=== PATIENT | female | born 1955 | race Caucasian/White ===

== ENCOUNTER 2017-08-10 14:46 | Inpatient (IN) | payer OTHER ==
--- NOTE | 2017-08-10 16:12 | RAD ---
Indication: RIGHT shoulder fracture or dislocation. Comparison: No relevant prior exams available on the [facility] PACS for comparison. Technique: CT RIGHT shoulder without contrast. Multiplanar reformation. Report: Normal acromioclavicular and glenohumeral joint alignment. Comminuted segmental impacted fracture extending from the surgical to the anatomic neck of the humerus with involvement of both the lesser and greater tuberosities. Up to 60 degrees apex anterior angulation. Associated moderate glenohumeral joint lipohemarthrosis. Negative for fracture of the scapula or distal clavicle. Mild osteophytosis, capsular hypertrophy, subchondral sclerosis, and subchondral cystic change at the acromioclavicular joint. Soft tissue edema greatest over the anterolateral aspect superficial to the deltoid muscle. No loculated soft tissue plane hematoma evident. IMPRESSION: Comminuted segmental impacted fracture extending from the surgical to the anatomic neck of the humerus with involvement of both the lesser and greater tuberosities. Up to 60 degrees apex anterior angulation. Associated moderate glenohumeral joint lipohemarthrosis.
[2017-08-10 16:25] LABS: Hematocrit 34 % (35-47); Hemoglobin 11.3 g/dl (12.0-16.0); Mean Corpuscular HGB Conc 33 g/dl (31-36); Mean Corpuscular Hemoglobin 29 pg (27-31); Mean Corpuscular Volume 87 fL (80-97); Mean Platelet Volume 7 um3 (7.4-10.4); Platelet Count 350 10^3/ul (150-450); Red Blood Count 3.91 10^6/ul (4.0-5.4); Red Cell Distribution Width 14 % (10.5-15); White Blood Count 13.8 10^3/ul (3.5-10.8)
--- NOTE | 2017-08-10 16:29 | RAD ---
Indication: Preoperative assessment. RIGHT humeral fracture. Comparison: RIGHT shoulder CT of the same date. Technique: Upright AP 1604 hours Report: Elevated lung volumes with mild prominence of interstitial markings. No alveolar consolidation, suspicious focal pulmonary lesion, pleural effusion, pneumothorax. The heart, pulmonary vasculature, and mediastinal contours are unremarkable. Bilateral healed rib fractures noted. No acute rib fracture evident. RIGHT humeral neck fracture noted corresponding with findings on dedicated CT of the RIGHT shoulder of the same date. IMPRESSION: Stigmata of obstructive lung disease. No acute pulmonary or cardiac process evident.
[2017-08-10 16:35] LABS: INR 0.95 (0.77-1.02)
[2017-08-10 16:39] LABS: EGFR Non-African American 113.1 (>60)
--- NOTE | 2017-08-10 18:08 | PN ---
Progress Note - Progress Note Date of Service: 08/10/17 SOAP: Full note dictated. Right four part displaced proximal humerus fracture. Plan for surgical intervention tomorrow in the form of an ORIF. She will be admitted and a hospitalist consult has been called. She will be npo at midnight and the hospitalist tells me an echo will be done in the morning.
[2017-08-10] MEDS ORDERED: Ondansetron INJ* 2 MG/ML VIAL IV PRN (18:15)
[2017-08-10] MEDS ORDERED: Acetaminophen TAB* 325 MG PO PRN (18:15)
[2017-08-10] MEDS: Morphine INJ* 2 MG/ML 1 ML CARPUJECT IV PRN (19:44)
[2017-08-10] MEDS ORDERED: Dextrose 50% Syringe 50 ML* 25 GM/50 ML SYRINGE IV PUSH PRN (20:33)
[2017-08-10] MEDS ORDERED: Albuterol 2.5 MG/3 ML NEB.SOL* (0.083%) INH PRN (20:36)
[2017-08-10] MEDS ORDERED: Magnesium Sulf 4 GM/100 ML IV* 4,000 MG/100 ML BAG IVPB ONE (20:38)
[2017-08-10] MEDS ORDERED: Lisinopril TAB* 10 MG PO SCH (21:00)
[2017-08-10] MEDS: DULoxetine DR CAP* 60 MG CAP.DR PO SCH (21:40)
[2017-08-10] MEDS: oxyCODONE/Acetamin 5/325 MG* TAB PO PRN (21:40)
[2017-08-10] MEDS: Gabapentin CAP(*) 300 MG PO SCH (21:40)
[2017-08-10] MEDS: Atorvastatin* 20 MG TAB PO SCH (21:40)
[2017-08-10] MEDS: Prazosin CAP* 1 MG PO SCH (21:41)
[2017-08-10] MEDS: Lisinopril TAB* 10 MG PO SCH (22:43)
--- NOTE | 2017-08-11 00:53 | CONS ---
CC: Rosalee Zaidi NP; Silas Monteor MD; Susana Cameron MD * CONSULTATION REPORT: DATE OF CONSULT: 08/10/17 PRIMARY CARE PROVIDER: Rosalee Zaidi NP REQUESTING PROVIDER: Silas Montero MD MY ATTENDING WHILE IN THE HOSPITAL: Susana Cameron MD REASON FOR CONSULTATION: Comanagement of comorbid medical conditions. HISTORY OF PRESENT ILLNESS: Ms. King is a 61-year-old female with past medical history significant for throat cancer in remission for 3 years, COPD, diabetes mellitus type 2, anxiety, and osteoporosis, who was out walking her dog today and stepped off a curb, fell on the ice, falling directly on her right shoulder. The patient states that her head hit the snow and she did not lose consciousness, have any prodromal symptoms or pain before the fall. The patient had immediate worst pain of her life after the fall. The patient was able to roll over and slowly make her way back to her house, which took about 5 minutes. The patient has no other sick contacts, recent illnesses, or other abnormalities. The patient denies chest pain before or after the incident. The patient denies any increased shortness of breath, nausea, vomiting, diarrhea. The patient was taken to [facility], where x-rays were taken and then she was transferred to our emergency room as she had a humeral fracture. The patient was accepted by Dr. Montero and he was unable to take her to the operating room today, so plan is for the patient to be taken to the operating room tomorrow. The patient had an EKG, which showed inverted T waves across the precordium, no other ST changes, and a QTc of 519. The patient had a troponin that should be added on to her lab work, which was 0.00. Another troponin is pending. The patient recently had a PET scan ordered by her oncologist due to concern for metastatic throat cancer, which had lesions in her lungs concerning for metastasis, the patient has not yet followed up on this. The patient also had a colonoscopy, which was unremarkable. The patient wears oxygen intermittently at home and wears a CPAP at night for obstructive sleep apnea. PAST MEDICAL HISTORY: Throat cancer, treated with radiation in 2013, currently in remission. COPD, diabetes mellitus type 2 insulin dependent, GERD, osteoporosis, anxiety, hypertension, obstructive sleep apnea. PAST SURGICAL HISTORY: Cholecystectomy in 1993, feeding tube placed in 2013. MEDICATIONS: 1. Insulin glargine 10 to 15 units before dinner. 2. Duloxetine 60 mg p.o. b.i.d. 3. Restasis 0.05% 2 drops both eyes every morning. 4. Pyridoxine 100 mg p.o. daily. 5. Alendronate 70 mg p.o. Saturdays. 6. Metformin 1000 mg p.o. b.i.d. 7. Omeprazole 40 mg p.o. daily. 8. Lipitor 20 mg p.o. q.p.m. 9. Buspirone 5 mg p.o. b.i.d. 10. Tiotropium 1 cap inhalation q.a.m. 11. Prazosin 2 mg p.o. bedtime. 12. Lisinopril 10 mg p.o. bedtime. 13. Gabapentin 300 mg p.o. t.i.d. 14. Cetirizine 10 mg p.o. q.p.m. 15. Ergocalciferol 5000 units p.o. Saturdays. ALLERGIES: ANIMAL DANDER. FAMILY HISTORY: The patient has no known family history. The patient's mother of complications of alcohol abuse and the patient's father of natural causes. SOCIAL HISTORY: The patient smokes 1 to 5 packs of cigarettes a day, but it is interesting and including that the patient does not drink alcohol or use illicit drugs. The patient has been retired since the . She worked odd jobs. While she was brought in with her children, The patient has a boyfriend. She is not , has 2 children. The patient's healthcare proxy is Nguyen France, her daughter. REVIEW OF SYSTEMS: A 14-point review of systems was reviewed and is negative except as stated in the HPI. PHYSICAL EXAM: General: The patient is a 61-year-old female, who appears older than stated age, sitting in the bed, in moderate distress from pain. Vital Signs: At the time of observation, temperature 97.8, pulse rate 84, respiratory rate 18, oxygen saturation 93% on 2 L oxygen, blood pressure 176/ 71. HEENT: Head normocephalic, atraumatic. Sclerae anicteric. No conjunctival injection. Nasal mucosa moist. Oral mucosa moist. No oropharyngeal erythema, discharge, exudate or mass. Neck: Supple, nontender. No lymphadenopathy. No carotid bruits auscultated. Cardiac: Regular rate and rhythm. No clicks, murmurs, gallops, rubs. Pulses 2+ in the bilateral dorsalis pedis, posterior tibialis, and radial areas. No lower extremity edema noted. Respiratory: Slight wheezes in the anterior left lobe, which cleared with deep breathing. No other adventitious lung sounds. Good air exchange bilaterally. Abdomen: Soft, nontender, nondistended. Bowel sounds present, normoactive in all 4 quadrants. No hepatosplenomegaly or abdominal bruits auscultated. Genitourinary: No suprapubic tenderness or CVA tenderness. Skin : Clean, dry, intact. No ecchymosis. Musculoskeletal: The patient has severe pain with any movement of her right arm, it is currently immobilized in a sling. There is physical deformity, possible anterior dislocation of the right upper extremity. No other restrictive range of motion. Neuro: Cranial nerves II through XII grossly intact. Strength preserved in the left upper extremity and bilateral lower extremities. 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 Sensation to light touch intact. Psychiatric: The patient seems very anxious, shaky, was otherwise pleasant and cooperative. DIAGNOSTIC STUDIES/LAB DATA: White blood cell count 13.8, hemoglobin 11.3, hematocrit 34, MCV 89, MCH 29, RDW 14, platelet count 350,000, MPV 7. INR 0.95 , APTT 31.7. Sodium 136, potassium 3.8, carbon dioxide 29, anion gap 7, BUN 12 , creatinine 0.55, glucose 174, hemoglobin A1c 9.8, calcium 9.4. Magnesium 1.4. Bilirubin 0.5, AST 12, ALT 11, alkaline phosphatase 74. Troponin I 0.00. Total protein 6.5. Albumin 4.1, globulin 2.4. Studies: Upper extremity CT read as comminuted segmental impacted fracture extending from the surgical to the anatomic neck of the humerus involving both lesser and greater tuberosities up to 60 degrees of apex anterior angulation, moderate glenohumeral joint lipohemarthrosis. Chest x-ray, 2018, read as stigmata of obstructive pulmonary disease, no acute pulmonary or cardiac process evident. Echocardiogram shows normal sinus rhythm, regular axis, rate of 81. Flattening of T waves in the inferior and lateral leads, T wave inversions in the anterior and lateral leads, and no previous study to compare to QTc of 530. No other ST segment abnormalities. ASSESSMENT AND PLAN: Impression: 1. The patient is a 61-year-old female with past medical history significant for throat cancer, in remission, emphysema, diabetes, hypertension, obstructive sleep apnea, who presents after a mechanical fall on the ice with a comminuted fracture of her proximal humerus. The patient is admitted to the hospital for surgical repair of this injury. The patient has an EKG, which shows possible ischemia in the anterior and lateral leads and needs an echocardiogram for further risk stratification preoperatively. 2. Humeral fracture. Management per primary team. The patient has moderately good pain control. The patient encouraged to not worry about asking for pain medication. She was concerned that other people would need it more. 3. EKG showing possible ischemia. The patient's EKG shows T wave inversions and T wave flattening throughout. There is no previous exam to compare this to. The patient had no chest pain, increased shortness of breath, diaphoresis, or other anginal equivalent. The patient had 1 troponin of 0.00. The patient has another troponin pending at this time. The patient will undergo an echocardiogram and repeat electrocardiogram in the morning. The patient would not be a good candidate for surgery if she is having a current myocardial infarction. If this is the patient's baseline and she is not having acute coronary syndrome, the patient's RCRI risk index would be 0.9% for a preoperative use of insulin indicating a 0.9% risk for major cardiac complication. The patient is a moderate risk for this low- risk surgery. 4. Chronic obstructive pulmonary disease. The patient is on intermittent oxygen at home. The patient is saturating well on 2 L in the hospital. Continue Spiriva, albuterol nebulizer as needed. No signs of current exacerbation. 5. Hypertension. Continue the patient's lisinopril tonight with hold parameters postoperatively. The patient is currently hypertensive. 6. Diabetes. We will stop the patient's glargine insulin as she has not eaten today and will be n.p.o. after midnight. We will manage the patient's blood sugars with sliding scale insulin. We will hold the patient's metformin. The patient's hemoglobin A1c is 9.8. Consideration should be made postoperatively for increasing her baseline insulin. The patient states that she is not very compliant with diabetic diet. 7. Throat cancer, abnormal CAT scan. The patient should follow up as outpatient. The patient's nodules are not apparent nor is any effusion apparent on chest x-ray. 8. Gastroesophageal reflux disease. Continue omeprazole. 9. Osteoporosis. Continue Fosamax postoperatively. Recommend followup DEXA scan. 10. DVT prophylaxis. The patient will have SCDs preoperatively and have heparin subcu postoperatively when cleared by Orthopedics. 11. FEN. The patient will be n.p.o. after midnight and then have a consistent carbohydrate heart-healthy diet. 12. Code status. The patient would like to be a full code. The patient's healthcare proxy would be Nguyen France as stated above. DISPOSITION: The patient was admitted inpatient on the orthopedic service. TIME SPENT: Approximately 60 minutes were spent on this consultation, 30 of which spent [id number] with the patient obtaining history and physical and discussing treatment plan. This plan has been discussed with my attending, Dr. Susana Cameron, and she is in agreement. KISHA WHEATLEY [id number]/[facility] #: [id number] BRIAN
[2017-08-11] MEDS: diPHENhydraMINE IV* 50 MG/ML 1 ml VIAL (BENADRYL) IV PRN ×2 (00:58→20:45)
[2017-08-11] MEDS: Morphine INJ* 2 MG/ML 1 ML CARPUJECT IV PRN ×4 (03:43→10:37)
[2017-08-11] MEDS: Tiotropium CAP.INH* CAP.INH/18 MCG (USE ORDER SET !) INH SCH (07:57)
[2017-08-11] MEDS: Omeprazole CAP* 20 MG PO SCH (08:22)
[2017-08-11] MEDS: Gabapentin CAP(*) 300 MG PO SCH ×3 (08:58→20:34)
[2017-08-11] MEDS: DULoxetine DR CAP* 60 MG CAP.DR PO SCH ×2 (08:58→20:35)
[2017-08-11] MEDS: Insulin LISPRO* 1 UNITS UNIT SUBCUT SCH ×3 (08:58→16:31)
[2017-08-11] MEDS ORDERED: Spiriva Inhaler DEVICE* 1 EACH DEVICE ONE (09:00)
--- NOTE | 2017-08-11 09:43 | ECHO ---
Patient: NAINA SOUZA [facility] Rec#: [id number] : 1955 Date: 08/11/2017 Age: 61y Height: 160.02 cm / 63.0 in Weight: 66.22 kg / 145.9 lbs Sex: F BSA: 1.69 Room#: [facility] Admit Date#: 08/10/2017 Type: Inpatient Referring: Manjit Kohler Reading: Aric Samson MD Senior Piping Designer: Bobbi NievesREHOBOTH MCK[facility] Transthoracic Echocardiogram Indication: Abnormal EKG BP: 102/50 HR: 80 Rhythm: NSR with PACs Findings History: Throat cancer, COPD, DM, MARILEE, HTN. Technical Comments: The study quality is poor. The study is technically limited due to poor acoustic windows. The study is technically limited due to the patient's history of COPD. The study was technically limited due to the patient's inability to lay in the left lateral decubitus position. Completed at 0820. Left Ventricle: The left ventricular chamber size is normal. There is no left ventricular hypertrophy. Global left ventricular wall motion and contractility are within normal limits. The left ventricle appears hyperdynamic. The estimated ejection fraction is greater than 65%. There is no consistent Doppler evidence of clinically significant diastolic dysfunction. Left Atrium: The left atrium is mildly dilated. Right Ventricle: The right ventricular cavity size is normal. The right ventricular global systolic function is normal. Right Atrium: The right atrial cavity size is normal. Aortic Valve: The aortic valve is trileaflet. There is no evidence of aortic valve thickening. There is a trace of aortic regurgitation. There is no evidence of aortic stenosis. Mitral Valve: The mitral valve leaflets are mildly thickened. There is a trace of mitral regurgitation. There is no evidence of mitral stenosis. Tricuspid Valve: The tricuspid valve leaflets are normal. There is trace to mild tricuspid regurgitation. The right ventricular systolic pressure is estimated at 24 mmHg. There is evidence that pulmonary hypertension may be underestimated. There is no tricuspid stenosis. Pulmonic Valve: The pulmonic valve structure is not well visualized. The pulmonic valve appears normal. There is no pulmonic stenosis. Pericardium: There is no significant pericardial effusion. Aorta: There is no dilatation of the ascending aorta. The aortic arch is not well visualized. The aortic root is normal in size. Pulmonary Artery: The main pulmonary artery is not well visualized. Venous: The inferior vena cava appears normal in size. There is a greater than 50% respiratory change in the inferior vena cava dimension. Conclusions The study is technically limited due to poor acoustic windows. Global left ventricular wall motion and contractility are within normal limits. The left ventricle appears hyperdynamic. The estimated ejection fraction is greater than 65%. The right ventricular global systolic function is normal. There is a trace of aortic regurgitation. There is no evidence of aortic stenosis. There is a trace of mitral regurgitation. There is trace to mild tricuspid regurgitation. The right ventricular systolic pressure is estimated at 24 mmHg. There is no significant pericardial effusion. Measurements Name Value Normal Range RVIDd (AP) 2D 2.7 cm (0.9 - 2.6) RVDdMajor (2D) 3.4 cm (2.2 - 4.4) RAd ISD 4CH 4.8 cm (3.4 - 4.9) RA (A4C)W 3.8 cm (2.9 - 4.6) IVSd (2D) 1 cm (0.6 - 1) LVPWd (2D) 0.9 cm (0.6 - 1) LVIDd (2D) 3.9 cm (3.6 - 5.4) LVIDs (2D) 2.6 cm - LV FS (2D) 34 % (25 - 45) Aortic Annulus 2.2 cm (1.4 - 2.6) Ao root diameter (2D) 2.9 cm (2.1 - 3.5) Ascending Ao 3 cm (2.1 - 3.4) LA dimension (AP) 2D 3.6 cm (2.3 - 3.8) LAd ISD 4CH 5.5 cm (2.9 - 5.3) LA ISD 4CH W 3.4 cm (2.5 - 4.5) Name Value Normal Range LA ESV SP 4CH (A/L) 45 ml - LA ESV SP 2CH (A/L) 65 ml - LA ESV BP (A/L) 55 ml - LA ESV BP (A/L) index 32 ml/m2 - LA ESV SP 4CH (MOD) 44 ml - LA ESV SP 2CH (MOD) 61 ml - Name Value Normal Range MV E-wave Vmax 0.69 m/sec - MV deceleration time 272.3 msec - MV A-wave Vmax 0.57 m/sec - MV E:A ratio 1.21 ratio - LV septal e' Vmax 0.07 m/sec - LV lateral e' Vmax 0.08 m/sec - LV E:e' septal ratio 9.86 ratio - LV E:e' lateral ratio 8.63 ratio - Name Value Normal Range AV Vmax 1.9 m/sec - AV VTI 34.2 cm - AV peak gradient 14.57 mmHg - AV mean gradient 8.3 mmHg - LVOT Vmax 1.33 m/sec - LVOT VTI 24.61 cm - LVOT peak gradient 7.13 mmHg - LVOT mean gradient 4.44 mmHg - Name Value Normal Range TR Vmax 2.3 m/sec - TR peak gradient 21 mmHg - RAP 3 mmHg - RVSP 24 mmHg - IVC diameter 1.8 cm - Name Value Normal Range PV Vmax 0.91 m/sec - PV peak gradient 3.38 mmHg -
--- NOTE | 2017-08-11 10:54 | ED ---
Camila Palomares Edward, scribed for Charles Mancuso MD on 08/10/17 at 1521 . Adult Trauma - HPI Summary HPI Summary: 61 y/o female K[place]I from [place] c/o immediate onset R shoulder pain s/p fall on ice. Denies neck pain. PMHx COPD, HTN, DM Type II, HLD, throat CA clear for 3 years. Pt was sent for CT and surgery. Pt will be seen by Dr. Montero. Sx not aggravated or alleviated by anything. - History of Current Complaint Chief Complaint: EDExtremityUpper Stated Complaint: RT SHOULDER SURGERY Hx Obtained From: Patient Mechanism of Injury: Fall Onset/Duration: Started Hours Ago Onset of Pain: Immediate Pain Intensity: 7 Pain Scale Used: 0-10 Numeric Location: Extremities - R shoulder Alleviating Factor(s): Nothing Associated Signs & Symptoms: Positive: Negative - Allergy/Home Medications Allergies/Adverse Reactions: Allergies Allergy/AdvReac Type Severity Reaction Status Date / Time animal dander Allergy Mild Runny Nose Verified 08/10/17 15:01 Home Medications: Home Medications Alendronate (NF) [Fosamax (NF)] 70 mg PO .Saturdays08/10/17 [History Confirmed 08/10/17] Atorvastatin* [Lipitor*] 20 mg PO QPM 08/10/17 [History Confirmed 08/10/17] Cetirizine* [ZyrTEC 10 MG TAB*] 10 mg PO QPM 08/10/17 [History Confirmed ] Cyclosporine 0.05% OPHTH (NF) [Restasis 0.05% OPHTH] 2 drop BOTH EYES QAM [History Confirmed 08/10/17] DULoxetine DR CAP* [Cymbalta CAP*] 60 mg PO BID 08/10/17 [History Confirmed 05/17] Ergocalciferol CAP* [Drisdol CAP*] 50,000 unit PO .Saturdays08/10/17 [History Confirmed 08/10/17] Gabapentin CAP(*) [Neurontin 300 CAP(*)] 300 mg PO TID 08/10/17 [History Confirmed 08/10/17] Insulin GLARGINE(*) [Lantus(*)] 15 - 20 units SUBCUT TID AC 08/10/17 [History Confirmed 08/10/17] Lisinopril TAB* [Prinivil TAB*] 10 mg PO BEDTIME 08/10/17 [History Confirmed 05/17] Omeprazole CAP* [Prilosec CAP* 20 MG] 40 mg PO DAILY 08/10/17 [History Confirmed 08/10/17] Prazosin CAP* [Minipress CAP*] 2 mg PO BEDTIME 08/10/17 [History Confirmed 08/10] Pyridoxine TAB* [Vitamin B6 TAB*] 100 mg PO DAILY 08/10/17 [History Confirmed ] Tiotropium CAP.INH* [Spiriva CAP.INH*] 1 cap.inh INH QAM 08/10/17 [History Confirmed 08/10/17] busPIRone TAB* [Buspar TAB*] 5 mg PO BID 08/10/17 [History Confirmed 08/10/17] metFORMIN* [Glucophage 1000 MG TAB *] 1,000 mg PO BID 08/10/17 [History Confirmed 08/10/17] PMH/Surg Hx/FS Hx/Imm Hx Previously Healthy: No Endocrine/Hematology History: Reports: Hx Diabetes, Other Endocrine/ Hematological Disorders - HLD Cardiovascular History: Reports: Hx Hypertension Respiratory History: Reports: Hx Asthma, Hx Chronic Obstructive Pulmonary Disease (COPD) - Cancer History Cancer Type, Location and Year: Throat CA - Immunization History Date of Influenza Vaccine: 04/15 Infectious Disease History: Yes Infectious Disease History: Denies: Traveled Outside the [place] in Last 30 Days - Family History Known Family History: Positive: Hypertension - Social History Alcohol Use: Rare Hx Substance Use: No Substance Use Type: Reports: None Smoking Status (MU): Light Every Day Tobacco Smoker Review of Systems Constitutional: Negative Eyes: Negative ENT: Negative Cardiovascular: Negative Respiratory: Negative Gastrointestinal: Negative Genitourinary: Negative Positive: Arthralgia - R shoulder pain Skin: Negative Neurological: Negative Psychological: Normal All Other Systems Reviewed And Are Negative: Yes Physical Exam - Summary Physical Exam Summary: elderly female. after receive 100 microgram fentanyl, shoulder pain.decreased ROM and deformity. decreased breath sounds and mild wheezing both sides of the lung Triage Information Reviewed: Yes Vital Signs On Initial Exam: Initial Vitals Temp Pulse Resp BP Pulse Ox 98.8 F 86 18 151/78 94 08/10/17 14:51 08/10/17 14:51 08/10/17 14:51 08/10/17 14:51 08/10/17 14:51 Vital Signs Reviewed: Yes Diagnostics - Vital Signs Vital Signs Temp Pulse Resp BP Pulse Ox 08/10/17 14:51 98.8 F 86 18 151/78 94 - Laboratory Result Diagrams: 08/10/17 16:20 08/10/17 16:20 Lab Statement: Any lab studies that have been ordered have been reviewed, and results considered in the medical decision making process. - Radiology CXR Xray Interpretation: No Acute Changes - Stigmata of obstructive lung disease. No acute pulmonary or cardiac process evident. Radiology Interpretation Completed By: Radiologist - CT UPPER EXTREMITY CT CT Interpretation: Positive (See Comments) - Comminuted segmental impacted fracture extending from the surgical to the anatomic neck of the humerus with involvement of both the lesser and greater tuberosities. Up to 60 degrees apex anterior angulation. Associated moderate glenohumeral joint lipohemarthrosis. CT Interpretation Completed By: Radiologist Adult Trauma Course/Dx - Course Assessment/Plan: 61 y/o female BIBA from [place] c/o immediate onset R shoulder pain s/p fall on ice. Denies neck pain. PMHx COPD, HTN, DM Type II, HLD , throat CA clear for 3 years. Pt was sent for CT and surgery. Pt will be seen by Dr. Montero. Sx not aggravated or alleviated by anything. UPPER EXTREMITY CT SHOWS Comminuted segmental impacted fracture extending from the surgical to the anatomic neck of the humerus with involvement of both the lesser and greater tuberosities. Up to 60 degrees apex anterior angulation. Associated moderate glenohumeral joint lipohemarthrosis. CXR SHOWS Stigmata of obstructive lung disease. No acute pulmonary or cardiac process. evident. Test results without significant abnormalities except WBC 13.8, glucose 174. Dr. Montero recommended CT of shoulder. At this time the pt was admitted for further workup and management. Pt is hemodynamically stable and A&Ox3. - Diagnoses Provider Diagnoses: Fx humeral neck Discharge - Discharge Plan Condition: Stable Disposition: ADMITTED TO [facility] documentation as recorded by the Camila boo Edward accurately reflects the service I personally performed and the decisions made by Bartolome castro Walter, MD.
[2017-08-11] MEDS: Mouth Piece, Nicotine* 1 EACH CARTRIDGE INH PRN (11:12)
[2017-08-11] MEDS: Nicotine Inhaler* 10 MG AMP INH PRN ×2 (11:12→14:21)
--- NOTE | 2017-08-11 12:22 | PN ---
Progress Note - Progress Note Date of Service: 08/11/17 SOAP: Subjective: []Patient seen OOB in chair. Her RUE is painful. Overnight she developed a rash on her back, ears and eyebrows. Patient states this is not abnormal for her, she routinely gets hives intermittently from an unknown exposure. She has COPD and is always short of breath but does not feel that she is having any abnormal difficulty with breathing. No chest pain or airway swelling. Patient had an echo this morning. Objective: []General: Well appearing, NAD RUE: Sling in place. Able to wiggle fingers. Radial pulse 2+. Brisk capillary refill distally. Sensation intact throughout digits 1-5 to light touch. Skin: urticaria of lower and mid back, ears and eyebrows. No obvious swelling of lips or tongue. Vital Signs Temp 97.5 F 08/11/17 11:37 Pulse 74 08/11/17 11:37 Resp 18 08/11/17 11:56 BP 97/49 08/11/17 11:37 Pulse Ox 100 08/11/17 11:37 Intake & Output 08/10/17 08/11/17 08/11/17 18:59 06:59 18:59 Intake Total 940 0 Output Total 950 Balance -10 0 Weight 146 lb 146 lb Intake: IV Fluids 100 Magnesium 100 Oral 840 0 Output: Urine 950 Laboratory Last Values WBC 13.8 10^3/ul (3.5-10.8) H 08/10/17 16:20 RBC 3.91 10^6/ul (4.0-5.4) L 08/10/17 16:20 Hgb 11.3 g/dl (12.0-16.0) L 08/10/17 16:20 Hct 34 % (35-47) L 08/10/17 16:20 MCV 87 fL (80-97) 08/10/17 16:20 MCH 29 pg (27-31) 08/10/17 16:20 MCHC 33 g/dl (31-36) 08/10/17 16:20 RDW 14 % (10.5-15) 08/10/17 16:20 Plt Count 350 10^3/ul (150-450) 08/10/17 16:20 MPV 7 um3 (7.4-10.4) L 08/10/17 16:20 INR (Anticoag Therapy) 0.95 (0.77-1.02) 08/10/17 16:20 APTT 31.7 seconds (26.0-36.3) 08/10/17 16:20 Sodium 136 mmol/L (133-145) 08/10/17 16:20 Potassium 3.8 mmol/L (3.5-5.0) 08/10/17 16:20 Chloride 100 mmol/L (101-111) L 08/10/17 16:20 Carbon Dioxide 29 mmol/L (22-32) 08/10/17 16:20 Anion Gap 7 mmol/L (2-11) 08/10/17 16:20 BUN 12 mg/dL (6-24) 08/10/17 16:20 Creatinine 0.55 mg/dL (0.51-0.95) 08/10/17 16:20 Est GFR ( Amer) 145.5 (>60) 08/10/17 16:20 Est GFR (Non-Af Amer) 113.1 (>60) 08/10/17 16:20 BUN/Creatinine Ratio 21.8 (8-20) H 08/10/17 16:20 Glucose 174 mg/dL (70-100) H 08/10/17 16:20 POC Glucose (mg/dL) 200 mg/dL (70-100) H 08/11/17 11:46 Hemoglobin A1c 9.8 % (4.0-5.6) H 08/10/17 16:20 Calcium 9.4 mg/dL (8.6-10.3) 08/10/17 16:20 Magnesium 1.4 mg/dL (1.9-2.7) L 08/10/17 16:20 Total Bilirubin 0.50 mg/dL (0.2-1.0) 08/10/17 16:20 AST 12 U/L (13-39) L 08/10/17 16:20 ALT 11 U/L (7-52) 08/10/17 16:20 Alkaline Phosphatase 74 U/L (34-104) 08/10/17 16:20 Troponin I 0.00 ng/mL (<0.04) 08/10/17 22:49 Total Protein 6.5 g/dL (6.4-8.9) 08/10/17 16:20 Albumin 4.1 g/dL (3.2-5.2) 08/10/17 16:20 Globulin 2.4 g/dL (2-4) 08/10/17 16:20 Albumin/Globulin Ratio 1.7 (1-3) 08/10/17 16:20 Assessment: []right humerus fracture Plan: []Patient is NPO. She will go to surgery today with Dr Montero. I have discussed rash and echo results with medicine and patient may proceed with surgery today. I have request triple washed sheets for patients bed.
--- NOTE | 2017-08-11 13:41 | PN ---
Subjective Date of Service: 08/11/17 Interval History: ECHO report reviewed. No signficant stenosis or ventricular dysfunction noted. Troponins are negative x2, patient has had no chest pain and now dyspnea. Clear to proceed with surgery with standard surgical risks and RCRI 0.9% CV risk. Discussed with anesthesia. Objective Active Medications: Acetaminophen (Tylenol Tab*) 650 mg PO Q6H PRN PRN Reason: PAIN OR TEMPERATURE Albuterol (Ventolin 2.5 Mg/3 Ml Neb.Sara*) 2.5 mg INH Q4H PRN PRN Reason: SOB/WHEEZING Atorvastatin Calcium (Lipitor*) 20 mg PO QPM [facility] Last Admin: 08/10/17 21:40 Dose: 20 mg Device (Nicotine Mouth Piece*) 1 each INH .USE WITH NICOTROL PRN PRN Reason: CRAVING Last Admin: 08/11/17 11:12 Dose: 1 each Dextrose (D50w Syringe 50 Ml*) 12.5 gm IV PUSH .FOR FS < 60 - SS PRN PRN Reason: FS < 60 Diphenhydramine HCl (Benadryl Iv*) 25 mg IV Q6H PRN PRN Reason: PRURITIS Last Admin: 08/11/17 00:58 Dose: 25 mg Duloxetine HCl (Cymbalta Cap*) 60 mg PO BID [facility] Last Admin: 08/11/17 08:58 Dose: Not Given Gabapentin (Neurontin Cap(*)) 300 mg PO TID [facility] Last Admin: 08/11/17 08:58 Dose: Not Given Lactated Ringer's (Lactated Ringers 1000 Ml Bag*) 1,000 mls @ 75 mls/hr IV PER RATE [facility] Insulin Human Lispro (Humalog*) 0 units SUBCUT AC [facility] PRN Reason: Protocol Last Admin: 08/11/17 11:55 Dose: 2 units Lisinopril (Prinivil Tab*) 10 mg PO BEDTIME [facility] Last Admin: 08/10/17 22:43 Dose: 10 mg Morphine Sulfate (Morphine Inj (Syringe)*) 2 mg IV Q2H PRN PRN Reason: PAIN - UNCONTROLLED Last Admin: 08/11/17 10:37 Dose: 2 mg Nicotine (Nicotine Inhaler*) 10 mg INH Q2H PRN PRN Reason: CRAVING Last Admin: 08/11/17 11:12 Dose: 10 mg Omeprazole (Prilosec Cap*) 40 mg PO DAILY@0730 [facility] Last Admin: 08/11/17 08:22 Dose: Not Given Oxycodone/Acetaminophen (Percocet 5/325 Tab*) 1 tab PO Q4H PRN PRN Reason: PAIN - MODERATE Oxycodone/Acetaminophen (Percocet 5/325 Tab*) 2 tab PO Q4H PRN PRN Reason: PAIN - MODERATE TO SEVERE Last Admin: 08/10/17 21:40 Dose: 2 tab Prazosin HCl (Minipress Cap*) 2 mg PO BEDTIME [facility] Last Admin: 08/10/17 21:41 Dose: 2 mg Tiotropium [place] (Spiriva Cap.Inh*) 1 cap INH QAM [facility] Last Admin: 08/11/17 07:57 Dose: 1 cap Vital Signs - 8 hr 08/11/17 08/11/17 08/11/17 05:59 07:16 07:59 Temperature Pulse Rate 74 Respiratory 18 18 18 Rate Blood Pressure (mmHg) O2 Sat by Pulse 99 Oximetry 08/11/17 08/11/17 08/11/17 08:06 08:11 08:17 Temperature 97.7 F Pulse Rate 80 Respiratory 17 18 Rate Blood Pressure 86/47 102/58 (mmHg) O2 Sat by Pulse 96 Oximetry 08/11/17 08/11/17 08/11/17 09:45 10:37 11:37 Temperature 97.5 F Pulse Rate 74 Respiratory 18 18 16 Rate Blood Pressure 97/49 (mmHg) O2 Sat by Pulse 100 Oximetry 08/11/17 11:56 Temperature Pulse Rate Respiratory 18 Rate Blood Pressure (mmHg) O2 Sat by Pulse Oximetry Oxygen Devices in Use Now: Nasal Cannula Result Diagrams: 08/10/17 16:20 08/10/17 16:20 Assess/Plan/Problems-Billing Assessment:
--- NOTE | 2017-08-11 13:51 | PN ---
Progress Note - Progress Note Date of Service: 08/10/17 Note: HISTORY AND PHYSICAL: DATE OF ADMISSION: 08/10/17 CHIEF COMPLAINT: Right shoulder pain. HISTORY OF PRESENT ILLNESS: Judie had a fall on the ice earlier today and fractured her right proximal humerus. It was a mechanical fall. She denies any chest pain or shortness of breath. She went to [place] [facility]. There was concern for a fracture dislocation. She was sent here where I got a CT scan showing a very displaced and angulated four-part proximal humerus fracture, but the humeral head appropriately located on the glenoid. PAST MEDICAL HISTORY: 1. History of throat cancer treated with radiation at [facility]. 2. COPD/asthma. 3. Neuropathy. 4. History of foot fractures. 5. Arthritis. 6. History of colon polyps. 7. Diabetes type 2, treated with metformin and insulin at night. PAST SURGICAL HISTORY: Cholecystectomy back in the . MEDICATIONS: Home medications include: 1. Alendronate. 2. Atorvastatin. 3. BuSpar. 4. Cetirizine. 5. Cyclosporin drops. 6. Duloxetine. 7. Ergocalciferol. 8. Gabapentin. 9. Insulin glargine. 10. Lisinopril. 11. Metformin. 12. Omeprazole. 13. Prazosin. 14. Pyridoxine. 15. Tiotropium. ALLERGIES: No known drug allergies. FAMILY HISTORY: Reviewed and noncontributory. No history of bleeding or anesthesia disorders. SOCIAL HISTORY: She is a longstanding smoker. She rarely drinks alcohol. She denies recreational drug use. She lives independently. REVIEW OF SYSTEMS: Positive for right shoulder pain. Otherwise, a full 14- point review of systems was conducted and is negative for chest pain, shortness of breath, bowel or bladder problems. PHYSICAL EXAMINATION GENERAL: Awake and alert, very pleasant. HEENT: Normal facies. Normocephalic, atraumatic. NECK: Full painless range of motion. No tenderness. LUNGS: There are some scattered wheezes. CARDIAC: Regular. ABDOMEN: Soft, nondistended. MUSCULOSKELETAL: There is quite a bit of deformity and swelling about the right shoulder. The elbow and wrist have an unremarkable exam as does the left upper extremity and bilateral lower extremities. NEUROLOGICAL: Positive AIN, PIN and ulnar motor function distally. Neurovascularly intact in the other extremities. VASCULAR: Warm and well perfused. IMAGING: X-rays were reviewed on the [facility] PAC system; they show a proximal humerus fracture that is displaced. CT scan performed here shows a displaced and highly angulated four-part proximal humerus fracture. IMPRESSION: Right displaced and four-part proximal humerus fracture. PLAN: Since she is not dislocated, we will go ahead and admit her overnight. We will have the hospitalist service see her. They told me they want to do an echocardiogram in the morning. We will have them do medical management for her diabetes medications and we will plan for a surgical intervention pending any further concerns by the hospitalist service tomorrow.
[2017-08-11] MEDS ORDERED: diPHENhydraMINE IV* 50 MG/ML 1 ml VIAL (BENADRYL) IV ONE (13:58)
[2017-08-11] MEDS ORDERED: Famotidine IV* 10 MG/ML 2 ML (20 mg) IV SLOW PU ONE (13:58)
[2017-08-11] MEDS ORDERED: diPHENhydraMINE IV* 50 MG/ML 1 ml VIAL (BENADRYL) ONE (14:08)
[2017-08-11] MEDS ORDERED: Famotidine IV* 10 MG/ML 2 ML (20 mg) ONE (14:08)
[2017-08-11] MEDS ORDERED: oxyCODONE/Acetamin 5/325 MG* TAB ONE (18:13)
[2017-08-11] MEDS: oxyCODONE/Acetamin 5/325 MG* TAB PO PRN ×2 (18:13→22:59)
[2017-08-11] MEDS ORDERED: HYDROmorphone INJ* 2 MG/ML CARPUJECT SYRINGE ONE (18:19)
[2017-08-11] MEDS: HYDROmorphone INJ* 2 MG/ML CARPUJECT SYRINGE IV SLOW PU PRN (18:26)
[2017-08-11] MEDS: Atorvastatin* 20 MG TAB PO SCH (20:34)
[2017-08-11] MEDS: Prazosin CAP* 1 MG PO SCH (20:34)
[2017-08-11] MEDS: Lisinopril TAB* 10 MG PO SCH (20:34)
[2017-08-12] MEDS: oxyCODONE/Acetamin 5/325 MG* TAB PO PRN ×3 (04:08→11:57)
[2017-08-12] MEDS: diPHENhydraMINE IV* 50 MG/ML 1 ml VIAL (BENADRYL) IV PRN (04:09)
--- NOTE | 2017-08-12 07:16 | HP ---
HISTORY AND PHYSICAL: DATE OF ADMISSION: CHIEF COMPLAINT: Right shoulder pain. HISTORY OF PRESENT ILLNESS: The patient had a fall on ice earlier today on 08/10/17 and fractured he r right proximal humerus. It was a mechanical fall. She denies any chest pain or shortness of breat h. She went to [facility]. There was concern for a fracture dislocation. She was transferred here , I got a CT scan showing a very displaced and angulated four-part proximal humerus fracture, but the humeral head was appropriately located on the glenoid. PAST MEDICAL HISTORY: 1. History of throat cancer treated with radiation at [facility] [place]. 2. COPD/asthma. 3. Neuropathy. 4. History of foot fractures. 5. Arthritis. 6. History of colon polyps. 7. Diabetes type 2, treated with metformin and insulin at night. PAST SURGICAL HISTORY: Cholecystectomy back in the . MEDICATIONS: Home medications include: 1. Alendronate. 2. Atorvastatin. 3. BuSpar. 4. Cetirizine. 5. Cyclosporin drops. 6. Duloxetine. 7. Ergocalciferol. 8. Gabapentin. 9. Insulin glargine. 10. Lisinopril. 11. Metformin. 12. Omeprazole. 13. Prazosin. 14. Pyridoxine. 15. Tiotropium. ALLERGIES: No known drug allergies. FAMILY HISTORY: Reviewed and noncontributory. No history of bleeding and anesthesia disorders. SOCIAL HISTORY: She is a longstanding smoker. She rarely drinks alcohol. She denies recreational d rug use. She lives independently. REVIEW OF SYSTEMS: Positive for right shoulder pain, otherwise a full 14-point review of systems was conducted and is negative for chest pain, shortness of breath, bowel or bladder problems. PHYSICAL EXAMINATION GENERAL: Awake and alert, very pleasant. HEENT: Normal facies. Normocephalic, atraumatic. NECK: Full painless range of motion. No tenderness. LUNGS: Scattered wheezes. CARDIAC: Regular. ABDOMEN: Soft, nondistended. MUSCULOSKELETAL: There is quite a bit of deformity and tenderness and swelling about the right shoul victor m. The wrist and elbow exams are unremarkable as is the rest of the left upper extremity and bilat eral lower extremity exams. NEUROLOGIC: Positive AIN, PIN and ulnar motor function distally. Neurovascularly intact in the othe r extremities. VASCULAR: Warm and well perfused. IMAGING: X-rays reviewed on the [facility] system show a displaced proximal humerus fracture. CT scan performed shows a displaced and highly angulated four- part proximal humerus fracture. IMPRESSION: Right displaced four-part proximal humerus fracture. PLAN: She has not dislocated. She will be admitted overnight. The hospitalist service will see her for preoperative consultation. They told me they want to do an echocardiogram in the morning. We w ill have them do medical management for her diabetes medications as well. We will plan for surgical intervention pending any further concerns by the hospitalist service. The plan will be for open redu ction and internal fixation of right proximal humerus fracture. [id number]/[facility] #: [id number]
[2017-08-12] MEDS: Gabapentin CAP(*) 300 MG PO SCH ×3 (07:31→22:42)
[2017-08-12] MEDS: Nicotine Inhaler* 10 MG AMP INH PRN (07:31)
[2017-08-12] MEDS: Omeprazole CAP* 20 MG PO SCH (07:32)
[2017-08-12] MEDS: DULoxetine DR CAP* 60 MG CAP.DR PO SCH ×2 (07:32→23:22)
[2017-08-12] MEDS: Tiotropium CAP.INH* CAP.INH/18 MCG (USE ORDER SET !) INH SCH (07:38)
[2017-08-12] MEDS: Insulin LISPRO* 1 UNITS UNIT SUBCUT SCH ×4 (07:39→20:26)
--- NOTE | 2017-08-12 08:36 | PN ---
Subjective Date of Service: 08/12/17 Interval History: Per patient and KISHA Potter/ortho, patient did not have surgery yesterday. Patient was cleared and sent to pre-op for procedure but surgery did not take place. Dr. Montero was in late cases so her case was canceled. Patient seen and examined this AM, c/o neck, shoulder and right arm pain, received dilaudid which is helping. Discussed her rash yesterday after morphone. Rash is resolved after having benadryl and pepcide. She had light breakfast today, as surgery will be an add on for later today. No further complaints. Objective Active Medications: Acetaminophen (Tylenol Tab*) 650 mg PO Q6H PRN PRN Reason: PAIN OR TEMPERATURE Albuterol (Ventolin 2.5 Mg/3 Ml Neb.Sara*) 2.5 mg INH Q4H PRN PRN Reason: SOB/WHEEZING Atorvastatin Calcium (Lipitor*) 20 mg PO QPM [facility] Last Admin: 08/11/17 20:34 Dose: 20 mg Device (Nicotine Mouth Piece*) 1 each INH .USE WITH NICOTROL PRN PRN Reason: CRAVING Last Admin: 08/11/17 11:12 Dose: 1 each Dextrose (D50w Syringe 50 Ml*) 12.5 gm IV PUSH .FOR FS < 60 - SS PRN PRN Reason: FS < 60 Diphenhydramine HCl (Benadryl Iv*) 25 mg IV Q6H PRN PRN Reason: PRURITIS Last Admin: 08/12/17 04:09 Dose: 25 mg Duloxetine HCl (Cymbalta Cap*) 60 mg PO BID [facility] Last Admin: 08/12/17 07:32 Dose: 60 mg Gabapentin (Neurontin Cap(*)) 300 mg PO TID [facility] Last Admin: 08/12/17 07:31 Dose: 300 mg Hydromorphone HCl (Dilaudid Inj*) 1 mg IV SLOW PU Q4H PRN PRN Reason: PAIN Last Admin: 08/11/17 18:26 Dose: 1 mg Lactated Ringer's (Lactated Ringers 1000 Ml Bag*) 1,000 mls @ 75 mls/hr IV PER RATE [facility] Last Admin: 08/11/17 20:45 Dose: 75 mls/hr Insulin Human Lispro (Humalog*) 0 units SUBCUT AC [facility] PRN Reason: Protocol Last Admin: 08/12/17 07:39 Dose: 6 units Lisinopril (Prinivil Tab*) 10 mg PO BEDTIME [facility] Last Admin: 08/11/17 20:34 Dose: 10 mg Nicotine (Nicotine Inhaler*) 10 mg INH Q2H PRN PRN Reason: CRAVING Last Admin: 08/12/17 07:31 Dose: 10 mg Omeprazole (Prilosec Cap*) 40 mg PO DAILY@0730 [facility] Last Admin: 08/12/17 07:32 Dose: 40 mg Oxycodone/Acetaminophen (Percocet 5/325 Tab*) 1 tab PO Q4H PRN PRN Reason: PAIN - MODERATE Oxycodone/Acetaminophen (Percocet 5/325 Tab*) 2 tab PO Q4H PRN PRN Reason: PAIN - MODERATE TO SEVERE Last Admin: 08/12/17 07:42 Dose: 2 tab Prazosin HCl (Minipress Cap*) 2 mg PO BEDTIME [facility] Last Admin: 08/11/17 20:34 Dose: 2 mg Tiotropium [place] (Spiriva Cap.Inh*) 1 cap INH QAM [facility] Last Admin: 08/12/17 07:38 Dose: 1 cap Vital Signs - 8 hr 08/12/17 08/12/17 08/12/17 01:05 01:06 04:08 Temperature Pulse Rate 89 Respiratory 16 18 16 Rate Blood Pressure (mmHg) O2 Sat by Pulse 91 Oximetry 08/12/17 08/12/17 08/12/17 04:09 04:39 06:25 Temperature 97.7 F Pulse Rate 92 Respiratory 16 18 16 Rate Blood Pressure 100/55 (mmHg) O2 Sat by Pulse 94 Oximetry 08/12/17 08/12/17 08/12/17 07:22 07:31 07:42 Temperature Pulse Rate 82 Respiratory 16 20 20 Rate Blood Pressure 104/55 (mmHg) O2 Sat by Pulse 93 Oximetry Oxygen Devices in Use Now: None, CPAP Appearance: Alert, anxious Ears/Nose/Mouth/Throat: Mucous Membranes Moist, - - edentulous Neck: Trachea Midline Respiratory: Symmetrical Chest Expansion and Respiratory Effort, Clear to Auscultation Cardiovascular: NL Sounds; No Murmurs; No JVD, RRR Abdominal: NL Sounds; No Tenderness; No Distention Skin: No Rash or Ulcers, - - back rash cleared Neurological: Alert and Oriented x 3, NL Gait Nutrition: - - NPO after breakfast Result Diagrams: 08/10/17 16:20 08/10/17 16:20 Diagnostic Imaging: Cardiac ECHO Conclusions/Summary: The study is technically limited due to poor acoustic windows. Global left ventricular wall motion and contractility are within normal limits. The left ventricle appears hyperdynamic. The estimated ejection fraction is greater than 65%. The right ventricular global systolic function is normal. There is a trace of aortic regurgitation. There is no evidence of aortic stenosis. There is a trace of mitral regurgitation. There is trace to mild tricuspid regurgitation. The right ventricular systolic pressure is estimated at 24 mmHg. There is no significant pericardial effusion. Assess/Plan/Problems-Billing Assessment: This is a 61 year old female with PMHx of COPD, IDDMII, throat CA in remission, tobacco abuse, CHER, HTN and MARILEE on CPAP that presents with right humerus fx after sustaining fall on the ice while walking her dog. - Patient Problems (1) Right humeral fracture Code(s): S42.301A - UNSP FRACTURE OF SHAFT OF HUMERUS, RIGHT ARM, INIT SNOMED Code(s): 79863765 Comment: - Surgery canceled yesterday - NPO today for surgery - Dilaudid for pain, had rash with morphine yesterday - Continue IVF (2) Throat cancer Current Visit: Yes Code(s): C14.0 - MALIGNANT NEOPLASM OF PHARYNX, UNSPECIFIED SNOMED Code(s): 567055570 Comment: - Treated 3 years ago with radiation and was in remission, per record recent PET may show mets in chest. Patient has to follow up with this after DC. (3) COPD (chronic obstructive pulmonary disease) Code(s): J44.9 - CHRONIC OBSTRUCTIVE PULMONARY DISEASE, UNSPECIFIED SNOMED Code(s): 52054457 Comment: - On albuterol and spiriva - Should stop smoking (4) Smoker Code(s): F17.200 - NICOTINE DEPENDENCE, UNSPECIFIED, UNCOMPLICATED SNOMED Code (s): 69424883 Comment: - On nicotine replacement while inpatient - Should stop smoking in light of throat CA with poss mets, COPD, new fracture/ osteoporosis (5) Hypertension Code(s): I10 - ESSENTIAL (PRIMARY) HYPERTENSION SNOMED Code(s): 11751323 Comment: - On prazosin and lisinopril (6) MARILEE on CPAP Code(s): G47.33 - OBSTRUCTIVE SLEEP APNEA (ADULT) (PEDIATRIC); Z99.89 - DEPENDENCE ON OTHER ENABLING MACHINES AND DEVICES SNOMED Code(s): 43269846 Comment: - For use while sleeping, CPAP from home (7) Osteoporosis Code(s): M81.0 - AGE-RELATED OSTEOPOROSIS W/O CURRENT PATHOLOGICAL FRACTURE SNOMED Code(s): 40038815 Comment: - At baseline (8) Full code status Code(s): Z78.9 - OTHER SPECIFIED HEALTH STATUS SNOMED Code(s): 366748231 (9) DVT prophylaxis Code(s): LTV7271 - SNOMED Code(s): 221223485 Comment: - SCDs while in bed (10) Diabetes Code(s): E11.9 - TYPE 2 DIABETES MELLITUS WITHOUT COMPLICATIONS SNOMED Code(s) : 03612899 Comment: - Lispro SS while NPO - Will add lantus post-op Status and Disposition: Remain inpatient and NPO for surgery today Counseling and/or Coordination of Care Minutes: coordinated with KISHA Potter
--- NOTE | 2017-08-12 10:37 | PN ---
Progress Note - Progress Note Date of Service: 08/12/17 SOAP: Subjective: []Patient seen sitting at bedside. She reports RUE pain is well controlled at this time described as sore and constant. Her neck and back are similarly sore. Denies fever, chills, nausea, shortness of breath or chest pain. Rash yesterday is suspicious for morphine allergy so have discontinued use. She is now using Dilaudid for IV pain med which she is tolerating well. Objective: [] Vital Signs Temp 97.7 F 08/12/17 04:39 Pulse 82 08/12/17 07:22 Resp 20 08/12/17 07:42 BP 104/55 08/12/17 07:22 Pulse Ox 93 08/12/17 07:22 Intake & Output 08/11/17 08/12/17 08/12/17 18:59 06:59 18:59 Intake Total 0 555 Output Total 150 400 Balance -150 155 Intake: Oral 0 555 Output: Urine 150 400 Other: # Bowel Movements 0 Laboratory Last Values WBC 13.8 10^3/ul (3.5-10.8) H 08/10/17 16:20 RBC 3.91 10^6/ul (4.0-5.4) L 08/10/17 16:20 Hgb 11.3 g/dl (12.0-16.0) L 08/10/17 16:20 Hct 34 % (35-47) L 08/10/17 16:20 MCV 87 fL (80-97) 08/10/17 16:20 MCH 29 pg (27-31) 08/10/17 16:20 MCHC 33 g/dl (31-36) 08/10/17 16:20 RDW 14 % (10.5-15) 08/10/17 16:20 Plt Count 350 10^3/ul (150-450) 08/10/17 16:20 MPV 7 um3 (7.4-10.4) L 08/10/17 16:20 INR (Anticoag Therapy) 0.95 (0.77-1.02) 08/10/17 16:20 APTT 31.7 seconds (26.0-36.3) 08/10/17 16:20 Sodium 136 mmol/L (133-145) 08/10/17 16:20 Potassium 3.8 mmol/L (3.5-5.0) 08/10/17 16:20 Chloride 100 mmol/L (101-111) L 08/10/17 16:20 Carbon Dioxide 29 mmol/L (22-32) 08/10/17 16:20 Anion Gap 7 mmol/L (2-11) 08/10/17 16:20 BUN 12 mg/dL (6-24) 08/10/17 16:20 Creatinine 0.55 mg/dL (0.51-0.95) 08/10/17 16:20 Est GFR ( Amer) 145.5 (>60) 08/10/17 16:20 Est GFR (Non-Af Amer) 113.1 (>60) 08/10/17 16:20 BUN/Creatinine Ratio 21.8 (8-20) H 08/10/17 16:20 Glucose 174 mg/dL (70-100) H 08/10/17 16:20 POC Glucose (mg/dL) 282 mg/dL (70-100) H 08/12/17 07:32 Hemoglobin A1c 9.8 % (4.0-5.6) H 08/10/17 16:20 Calcium 9.4 mg/dL (8.6-10.3) 08/10/17 16:20 Magnesium 1.4 mg/dL (1.9-2.7) L 08/10/17 16:20 Total Bilirubin 0.50 mg/dL (0.2-1.0) 08/10/17 16:20 AST 12 U/L (13-39) L 08/10/17 16:20 ALT 11 U/L (7-52) 08/10/17 16:20 Alkaline Phosphatase 74 U/L (34-104) 08/10/17 16:20 Troponin I 0.00 ng/mL (<0.04) 08/10/17 22:49 Total Protein 6.5 g/dL (6.4-8.9) 08/10/17 16:20 Albumin 4.1 g/dL (3.2-5.2) 08/10/17 16:20 Globulin 2.4 g/dL (2-4) 08/10/17 16:20 Albumin/Globulin Ratio 1.7 (1-3) 08/10/17 16:20 General: Well appearing, NAD. RUE: Able to wiggle all fingers. Radial pulse 2+. Brisk capillary refill distally. Sensation intact throughout digits 1-5 to light touch. Skin: Rash of back, ears and eyebrows has resolved Assessment: []right humerus fracture Plan: []Patient is NPO after breakfast today. She will go to surgery this afternoon/ evening with Dr Montero.
[2017-08-12] MEDS ORDERED: Bupivacaine 0.5% SDV PF* 10-30ML VIAL ONE (16:01)
[2017-08-12] MEDS ORDERED: fentaNYL* 50 MCG/ML 2 ML VIAL (100 MCG VIAL) ONE (16:03)
[2017-08-12] MEDS ORDERED: Midazolam* 1 MG/ML 2 ML VIAL (2 MG) ONE (16:03)
[2017-08-12] MEDS ORDERED: Lidocaine 2% PF * 5 ML VIAL ONE (16:04)
[2017-08-12] MEDS ORDERED: Rocuronium* 10 MG/ML VIAL ONE (16:04)
[2017-08-12] MEDS ORDERED: Propofol* 10 MG/ML 20 ML BTL IV PUSH ONE (16:04)
[2017-08-12] MEDS ORDERED: Buffered Lidocaine 0.9% SYRIN* 5 ML/SYR SYRINGE INTRADERM ONE (16:13)
[2017-08-12] MEDS ORDERED: Famotidine IV* 10 MG/ML 2 ML (20 mg) IV ONE (16:13)
[2017-08-12] MEDS ORDERED: Levalbuterol 0.63MG/3ML NEB* UNIT OF USE INH ONE (16:13)
[2017-08-12] MEDS ORDERED: Levalbuterol 1.25MG/0.5ML NEB ONE (16:18)
[2017-08-12] MEDS ORDERED: diPHENhydraMINE IV* 50 MG/ML 1 ml VIAL (BENADRYL) IV PRN (16:39)
[2017-08-12] MEDS ORDERED: Ondansetron INJ* 2 MG/ML VIAL IV PRN (16:39)
[2017-08-12] MEDS ORDERED: fentaNYL* 50 MCG/ML 2 ML VIAL (100 MCG VIAL) IV PRN (16:39)
[2017-08-12] MEDS ORDERED: HYDROmorphone INJ* 1 MG/ML CARPUJECT SYRINGE IV PRN (16:39)
[2017-08-12] MEDS ORDERED: oxyCODONE/Acetamin 5/325 MG* TAB PO PRN (16:39)
[2017-08-12] MEDS ORDERED: Naloxone* 0.4 MG/ML 1 ML VIAL IV PRN (16:39)
[2017-08-12] MEDS ORDERED: ceFAZolin 1 GM in Dextrose (*) 2 GM/100 ML BAG IVPB ONE (17:11)
[2017-08-12] MEDS ORDERED: Acetaminophen IV 1GM/100ML * 1,000 MG/100 ML VIAL IVPB ONE (18:50)
[2017-08-12] MEDS ORDERED: VASOPRESSIN 20 UNITS/ML 1 ML VIAL ONE (19:17)
[2017-08-12] MEDS ORDERED: EPHEDrine (Pressors)* 50 MG/ML VIAL ONE (19:17)
[2017-08-12] MEDS ORDERED: Acetaminophen IV 1GM/100ML * 100 ML ONE (19:48)
[2017-08-12] MEDS ORDERED: Gabapentin CAP(*) 300 MG PO ONE (19:51)
[2017-08-12] MEDS ORDERED: Gabapentin CAP(*) 300 MG ONE (19:51)
[2017-08-12] MEDS: Atorvastatin* 20 MG TAB PO SCH (20:00)
[2017-08-12] MEDS ORDERED: Insulin LISPRO* 1 UNITS UNIT SUBCUT ONE (20:20)
[2017-08-12] MEDS ORDERED: HYDROmorphone INJ* 2 MG/ML CARPUJECT SYRINGE ONE (20:42)
[2017-08-12] MEDS: HYDROmorphone INJ* 2 MG/ML CARPUJECT SYRINGE IV SLOW PU PRN (21:10)
--- NOTE | 2017-08-12 22:07 | RAD ---
CPT II Codes: 6045F INDICATION: Fractured humerus TECHNIQUE: Intraoperative fluoroscopy was provided during ORIF proximal right humerus. FINDINGS: 5 spot films depict plate and screw fixation of the proximal right humeral fracture. Fluoroscopy time: 12.3 seconds IMPRESSION: As above.
[2017-08-12] MEDS: Lisinopril TAB* 10 MG PO SCH (23:22)
[2017-08-12] MEDS: Prazosin CAP* 1 MG PO SCH (23:22)
[2017-08-13] MEDS: Mouth Piece, Nicotine* 1 EACH CARTRIDGE INH PRN (00:03)
[2017-08-13] MEDS: Nicotine Inhaler* 10 MG AMP INH PRN (00:04)
[2017-08-13] MEDS: oxyCODONE/Acetamin 5/325 MG* TAB PO PRN ×4 (01:25→13:37)
[2017-08-13] MEDS ORDERED: Insulin GLARGINE(*) 1 UNITS UNIT SUBCUT SCH (08:00)
[2017-08-13] MEDS: Omeprazole CAP* 20 MG PO SCH (08:04)
[2017-08-13] MEDS: Insulin LISPRO* 1 UNITS UNIT SUBCUT SCH ×2 (08:04→12:34)
[2017-08-13] MEDS ORDERED: HYDROmorphone INJ* 1 MG/ML CARPUJECT SYRINGE ONE (08:12)
[2017-08-13] MEDS: DULoxetine DR CAP* 60 MG CAP.DR PO SCH (08:56)
[2017-08-13] MEDS: Gabapentin CAP(*) 300 MG PO SCH ×2 (08:57→13:34)
[2017-08-13] MEDS: Tiotropium CAP.INH* CAP.INH/18 MCG (USE ORDER SET !) INH SCH (08:57)
--- NOTE | 2017-08-13 11:01 | PN ---
Progress Note - Progress Note Date of Service: 08/13/17 SOAP: Subjective: []Patient seen this morning. She is anxious to have a cigarette but otherwise feels well. Pain is well controlled, she denies numbness or tingling of RUE. Denies fever, chills, CP, SOB, dizziness or nausea. Objective: [} Vital Signs Temp 98.6 F 08/13/17 07:22 Pulse 87 08/13/17 07:22 Resp 20 08/13/17 10:49 BP 121/60 08/13/17 07:22 Pulse Ox 96 08/13/17 08:00 Intake & Output 08/12/17 08/13/17 08/13/17 18:59 06:59 18:59 Intake Total 989 3129 Output Total 300 0 Balance 689 3129 Intake: IV Fluids 989 3009 LR 989 3009 Oral 0 120 Output: Urine 300 0 Other: Estimated Void Large # Bowel Movements 0 # Voids 1 Laboratory Last Values WBC 13.8 10^3/ul (3.5-10.8) H 08/10/17 16:20 RBC 3.91 10^6/ul (4.0-5.4) L 08/10/17 16:20 Hgb 11.3 g/dl (12.0-16.0) L 08/10/17 16:20 Hct 34 % (35-47) L 08/10/17 16:20 MCV 87 fL (80-97) 08/10/17 16:20 MCH 29 pg (27-31) 08/10/17 16:20 MCHC 33 g/dl (31-36) 08/10/17 16:20 RDW 14 % (10.5-15) 08/10/17 16:20 Plt Count 350 10^3/ul (150-450) 08/10/17 16:20 MPV 7 um3 (7.4-10.4) L 08/10/17 16:20 INR (Anticoag Therapy) 0.95 (0.77-1.02) 08/10/17 16:20 APTT 31.7 seconds (26.0-36.3) 08/10/17 16:20 Sodium 136 mmol/L (133-145) 08/10/17 16:20 Potassium 3.8 mmol/L (3.5-5.0) 08/10/17 16:20 Chloride 100 mmol/L (101-111) L 08/10/17 16:20 Carbon Dioxide 29 mmol/L (22-32) 08/10/17 16:20 Anion Gap 7 mmol/L (2-11) 08/10/17 16:20 BUN 12 mg/dL (6-24) 08/10/17 16:20 Creatinine 0.55 mg/dL (0.51-0.95) 08/10/17 16:20 Est GFR ( Amer) 145.5 (>60) 08/10/17 16:20 Est GFR (Non-Af Amer) 113.1 (>60) 08/10/17 16:20 BUN/Creatinine Ratio 21.8 (8-20) H 08/10/17 16:20 Glucose 174 mg/dL (70-100) H 08/10/17 16:20 POC Glucose (mg/dL) 361 mg/dL (70-100) H 08/13/17 07:50 Hemoglobin A1c 9.8 % (4.0-5.6) H 08/10/17 16:20 Calcium 9.4 mg/dL (8.6-10.3) 08/10/17 16:20 Magnesium 1.4 mg/dL (1.9-2.7) L 08/10/17 16:20 Total Bilirubin 0.50 mg/dL (0.2-1.0) 08/10/17 16:20 AST 12 U/L (13-39) L 08/10/17 16:20 ALT 11 U/L (7-52) 08/10/17 16:20 Alkaline Phosphatase 74 U/L (34-104) 08/10/17 16:20 Troponin I 0.00 ng/mL (<0.04) 08/10/17 22:49 Total Protein 6.5 g/dL (6.4-8.9) 08/10/17 16:20 Albumin 4.1 g/dL (3.2-5.2) 08/10/17 16:20 Globulin 2.4 g/dL (2-4) 08/10/17 16:20 Albumin/Globulin Ratio 1.7 (1-3) 08/10/17 16:20 General: Well appearing, NAD. Patient is up out of bed searching through her personal items using her right arm. RUE: Radial pulse 2+. Less than 2 seconds capillary refill distally. Sensation intact throughout digits 1-5 to light touch. Flexion, extension, abduction and adduction intact of digits 1-5. Assessment: []POD 1 s/p ORIF right humerus fracture 08/12, Dr Montero Plan: []- When medically appropriate patient may D/C home - NWB RUE. Strongly discouraged to refrain from use of RUE. Patient understands she may perform pendulums as PT instructs but should not otherwise be using her RUE. Absolutely no weightbearing, pushing, pulling. - PT to see patient to teach shoulder pendulums - Follow up with Dr Montero in 2 weeks
[2017-08-13 11:45] LABS: Hematocrit 25 % (35-47); Hemoglobin 8.5 g/dl (12.0-16.0)
[2017-08-13 11:49] VITALS: BP 113/45
--- NOTE | 2017-08-13 19:00 | OP ---
DATE OF OPERATION: 08/12/17 - ROOM #348 DATE OF : 59 SURGEON: Silas Montero MD INSTRUMENT ROOM TECHNICIAN: KISHA Potter. An credentialing assistant was needed for the entirety of the procedure to aid in positioning of the arm and retraction. ANESTHESIOLOGIST: Dr. Riley. ANESTHESIA: General. PRE-OP DIAGNOSIS: Right displaced proximal humerus fracture. POST-OP DIAGNOSIS: Right displaced proximal humerus fracture. OPERATIVE PROCEDURE: Open reduction internal fixation, right displaced proximal humerus fracture. INDICATIONS: Zayda has a fracture involving the surgical neck. The tuberosities are also fractured but they are not displaced. We had talked about risks and benefits. She had wanted to proceed with surgery. She understands there is a risk of stiffness, risk of neurovascular injury, risk of infection, risk of nonunion, hardware failure. ESTIMATED BLOOD LOSS: 50 mL. COMPLICATIONS: None. FINDINGS: As expected. DESCRIPTION OF PROCEDURE: Zayda was seen in the preoperative holding area. The correct side, site, and procedure were identified. We came back to the operating room and the arm was prepped and draped in the usual fashion. A time- out was performed. She had been positioned in the beach chair with the neck in excellent position. I began by making an incision starting just proximal to the coracoid and extending down along the deltopectoral interval down to the anterolateral forearm. Dissection was carried down through the subcutaneous tissue. The clavipectoral fascia was opened. The cephalic vein was retracted medially and the perforators were ligated. This took us down to the clavipectoral fascia, which was incised, and a retractor was inserted underneath the conjoint tendon coming off the coracoid. Hohmann retractors were placed laterally about the humerus. The soft tissue along the proximal humeral shaft was released including the distal portion of the anterior deltoid and just a portion of the pectoralis major. At this point, I brought in a padded Cuevas stand. I went ahead and performed a reduction maneuver and got the bone nicely reduced. I placed one 2.0 mm pin traversing the fracture site. The reduction was checked on fluoroscopy. It was in a tough of varus, so I took it out of the varus and then replaced the pin. Things looked good now, so I went ahead and brought in my plate. This was pinned into place. This was a Synthes proximal humerus anatomic locking plate. I then placed my one 2.5 mm screw in the most proximal hole. This provided excellent plate to bone opposition. I then used the locking guides to place all of the proximal locking screws. Everything at this point was looking good, so I placed two additional screws proximally, one cortical and one locking. Final fluoroscopic imaging was checked. None of the screws were penetrating the humeral head. The wound was copiously irrigated. The deltopectoral fascia was closed with 2-0 Vicryl suture. The subcutaneous tissue was reapproximated with 2-0 Vicryl suture. Skin was closed with syed. The wound was infiltrated with 0.25% plain Marcaine. Wound was dressed with Xeroform, 4x4's, an ABD, and foam tape. She was then awoken up and taken to the recovery room in stable condition. [id number]/[facility] #: [id number] MTDD
--- NOTE | 2017-08-14 14:17 | DS ---
AMENDED REPORT NOW INCLUDES COSIGNER DESIGNATION - ESIGNED BEFORE ADJUSTMENT DISCHARGE SUMMARY: DATE OF ADMISSION: 08/10/17 DATE OF DISCHARGE: 08/13/17 SURGEON: Silas Montero MD * (DICTATED BY KISHA TURK) [employer]ION[employer] SALES EXECUTIVE: KISHA Turk HISTORY: The patient is a 61-year-old female who presents to [facility] with right arm pain after a fall on ice. She was found to have a right humeral fracture, which was repaired on 08/12/17. HOSPITAL COURSE: The patient presented to [facility] Emergency Room on 08/10/17 after a fall on ice, complaining of right shoulder pain. She was found to have a right humeral neck fracture. She was admitted to orthopedic service with the hospitalist consult on 08/11/17. She was seen out of bed in a chair. Her sling was in place. She was able to wiggle her fingers, radial pulse 2+, brisk capillary refill distally, sensation intact throughout digits 1 to 5 to light touch. She did have urticaria of her lower and mid back, ears and eyebrows. The patient was seen on 08/12/17. She was able to wiggle all fingers, radial pulse 2+, brisk capillary refill distally, sensation intact throughout digits 1 to 5 to light touch. Please note that on 08/11/17, the patient had an echo with no significant stenosis or ventricular dysfunction. Troponins x2 were negative. She was n.p.o. after breakfast today and she underwent a right humerus ORIF without complication on the evening of 08/12/17. She was transferred to the PACU where she recovered briefly into the short- stay surgical unit in stable condition. On 08/13/17, the patient was seen postop day 1, she was well appearing, no acute distress. She was up out of bed , appearing in no acute discomfort. Her radial pulse was 2+, less than 2 seconds of capillary refill distally, sensation intact throughout digits 1 to 5 to light touch. Flexion, extension, abduction, and adduction intact to digits 1 to 5, that is all of the right upper extremity. Hemoglobin was 8.5, hematocrit 25. Vital signs: Temperature 98.2, pulse rate 95, respiratory rate 16, oxygen saturation 95%, blood pressure 113/45. The patient was deemed to be medically and orthopedically stable for discharge home. MEDICATIONS AT DISCHARGE: Resumed home medications are as follows: 1. Lantus 15 to 20 units subcu t.i.d. 2. Duloxetine 60 mg p.o. b.i.d. 3. Restasis 2 drops both eyes q.a.m. 4. Pyridoxine 100 mg p.o. daily. 5. Fosamax 70 mg p.o. Friday. 6. Metformin 100 mg p.o. b.i.d. 7. Omeprazole 40 mg p.o. daily. 8. Atorvastatin 20 mg p.o. q.a.m. 9. Buspirone 5 mg p.o. b.i.d. 10. Spiriva 1 cap inhaled q.a.m. 11. Prazosin 2 mg p.o. at bedtime. 12. Lisinopril 10 mg p.o. at bedtime. 13. Gabapentin 300 mg p.o. t.i.d. 14. Cetirizine 10 mg p.o. q.p.m. 15. Ergocalciferol 50,000 units p.o. Saturdays. New medications: 1. Acetaminophen 650 mg p.o. q.6 hours p.r.n., max daily dose of 4000 mg. 2. Percocet 5/325 one to two tabs every 4 to 6 hours p.r.n., max daily dose of 8. DISCHARGE PLAN: Nonweightbearing of right upper extremity. No pushing, pulling , lifting with your right arm, only motion of right arm is to be pendulums as shown by physical therapy. Wound care: Okay to shower after 08/15/17. Do not submerge wound.Dressing should remain clean, dry, and intact until then. No bathing, swimming, or submerging wound. Call orthopedic office for increased drainage, redness, increased pain or fever. Go to the emergency room with shortness of breath or chest pain. Pain control with Percocet 5/325 one to two tabs by mouth every 4 to 6 hours as needed, max of 8 per day. Follow up with Dr. Montero in 2 weeks, please call for an appointment. JOSE NIELSON, KISHA [id number]/[facility] #: [id number] [facility] [place]am[place]
== END 2017-08-13 15:19 | disposition home health service (06) | DRG 315 ==
LOC: ED 14:46 → SSU 18:15
PROVIDERS: ADMIT Physician Assistant; ATTEND Internal Medicine
PROC: 5A09357 Assistance with Respiratory Ventilation, Less than 24 Consecutive Hours, Continuous Positive Airway Pressure (ICD-10-PCS; 2017-08-10)
PROC: 0PSC04Z Reposition Right Humeral Head with Internal Fixation Device, Open Approach (ICD-10-PCS; principal; 2017-08-12 17:00)
DX: S42.241A 4-part fracture of surgical neck of right humerus, initial encounter for closed fracture (principal); E11.40 Type 2 diabetes mellitus with diabetic neuropathy, unspecified; Z99.81 Dependence on supplemental oxygen; S42.254A Nondisplaced fracture of greater tuberosity of right humerus, initial encounter for closed fracture; S42.264A Nondisplaced fracture of lesser tuberosity of right humerus, initial encounter for closed fracture; I10 Essential (primary) hypertension; E78.5 Hyperlipidemia, unspecified; M21.10 Varus deformity, not elsewhere classified, unspecified site; M19.90 Unspecified osteoarthritis, unspecified site; W00.0XXA Fall on same level due to ice and snow, initial encounter; K21.9 Gastro-esophageal reflux disease without esophagitis; M81.0 Age-related osteoporosis without current pathological fracture; F41.9 Anxiety disorder, unspecified; C14.0 Malignant neoplasm of pharynx, unspecified; R91.1 Solitary pulmonary nodule; G47.33 Obstructive sleep apnea (adult) (pediatric); J43.9 Emphysema, unspecified; F17.210 Nicotine dependence, cigarettes, uncomplicated; I08.3 Combined rheumatic disorders of mitral, aortic and tricuspid valves; T40.2X5A Adverse effect of other opioids, initial encounter; L50.0 Allergic urticaria; Y92.239 Unspecified place in hospital as the place of occurrence of the external cause; Z98.42 Cataract extraction status, left eye; Z91.048 Other nonmedicinal substance allergy status; Z82.49 Family history of ischemic heart disease and other diseases of the circulatory system; Z90.49 Acquired absence of other specified parts of digestive tract; Z86.010 Personal history of colon polyps; Z92.3 Personal history of irradiation; Z72.89 Other problems related to lifestyle; Y92.009 Unspecified place in unspecified non-institutional (private) residence as the place of occurrence of the external cause; Z98.41 Cataract extraction status, right eye; Z79.84 Long term (current) use of oral hypoglycemic drugs
CPT/HCPCS: 36415; 71045; 80053; 80171; 83036; 83735; 84484; 85014; 85018; 85027; 85610; 85730; 93005; 93306; 94640; 94660; 94760; 99283; A9270-GY; C1713; C1776; J0690; J1170; J1200; J2250; J2270; J2704; J3010; J3475